=== PATIENT | female | born 1950 | race Caucasian/White ===

== ENCOUNTER 2020-11-26 07:30 | Inpatient (IN) | payer OTHER, BC, SELFPAY ==
[2020-11-22 12:07] LABS: BASOPHILS % (AUTO) 0.4 % (0.0-2.0); EOSINOPHILS # (AUTO) 0.2 K/uL (0.0-0.4); EOSINOPHILS % (AUTO) 2.7 % (0.0-4.0); HEMATOCRIT 40.4 % (36-48); HEMOGLOBIN 13.4 g/dL (12.0-16.0); LYMPHOCYTES # (AUTO) 1.9 K/uL (1.0-5.5); LYMPHOCYTES % (AUTO) 29.9 % (20.5-51.5); MEAN CORPUSCULAR HEMOGLOBIN 29 pg (27-31); MEAN CORPUSCULAR HGB CONC 33 % (32-36); MEAN CORPUSCULAR VOLUME 88 fL (79.0-98.0); MONOCYTES # (AUTO) 0.4 K/uL (0.0-1.0); MONOCYTES % (AUTO) 6.7 % (1.7-9.3); NEUTROPHILS # (AUTO) 3.9 K/uL (1.8-7.7); NEUTROPHILS % (AUTO) 60.3 % (40.0-70.0); PLATELET COUNT (AUTO) 223 K/uL (130-430); RED BLOOD CELL COUNT(AUTO) 4.59 MIL/uL (4.2-6.2); RED CELL DISTRIBUTION WIDTH 13.9 % (9.0-15.0); WHITE BLOOD COUNT (AUTO) 6.5 K/uL (4.8-10.8)
[2020-11-22 12:19] LABS: INR 0.9 (0.8-1.2); PROTHROMBIN TIME 9.4 SECS (9.5-12.5)
[2020-11-22 12:23] LABS: ANION GAP 9 (5-15); CALCIUM 8.8 mg/dL (8.4-11.0); CHLORIDE 105 mmol/L (98-107); CREATININE 0.95 mg/dL (0.55-1.30); GLUCOSE 113 mg/dL (70-99); POTASSIUM 4.4 mmol/L (3.5-5.1); SODIUM SERUM 143 mmol/L (136-145); UREA NITROGEN, BLOOD 20 mg/dL (8-21)
[2020-11-22 12:49] LABS: BILIRUBIN,URINE NEGATIVE (NEGATIVE); BLOOD, URINE NEGATIVE (NEGATIVE); CLARITY/URINE CLEAR (CLEAR); COLOR,URINE YELLOW (YELLOW); GLUCOSE,URINE NEGATIVE (NEGATIVE); KETONES,URINE NEGATIVE (NEGATIVE); LEUKOCYTE ESTERASE ,URINE NEGATIVE (NEGATIVE); NITRITE, URINE NEGATIVE (NEGATIVE); PROTEIN URINE NEGATIVE (NEGATIVE); UROBILINOGEN,URINE 0.2 (0.2-1.0)
[~2020-11-26] VITALS: Ht 170.2 cm; Wt 104.3 kg
[2020-11-26] MEDS: RIVAROXABAN 10 MG TABLET PO SCH (09:00)
[2020-11-26] MEDS ORDERED: CEFAZOLIN SOD 1 GM in D5W 50 ML IV ONE (09:00)
[2020-11-26] MEDS ORDERED: DOXA1TAB2 PO (09:35)
[2020-11-26] MEDS ORDERED: DICL50TA9 PO (09:35)
[2020-11-26] MEDS ORDERED: LOSA100T3 PO (09:35)
[2020-11-26] MEDS ORDERED: POLYMYXIN 500,000/BACIT.10,000 UNITS in NS IRR 1 L IR ONE ×3 (10:00→12:35)
[2020-11-26] MEDS ORDERED: BUPIVACAINE /DEX PF 0.75% SPINAL 2 ML AMP INJ ONE (10:21)
[2020-11-26] MEDS ORDERED: MORPHINE SULFATE 10MG/10ML PF AMP EP ONE (10:21)
[2020-11-26] MEDS ORDERED: PROPOFOL 200MG/ 20ML VIAL (DIPRIVAN) IV ONE (10:21)
[2020-11-26] MEDS ORDERED: BUPIVACAINE LIPOSOME/PF 266 MG/20 ML VIAL INFIL ONE ×2 (10:21→11:57)
[2020-11-26] MEDS ORDERED: KETOROLAC TROMETHAMINE 30 MG VIAL IVP ONE (10:21)
[2020-11-26] MEDS ORDERED: ONDANSETRON HCL 4 MG/2 ML VIAL IVP ONE (10:21)
[2020-11-26] MEDS ORDERED: BUPIVACAINE /EPINEPHRINE/PF 0.5% 30 ML VIAL INJ ONE (10:21)
[2020-11-26] MEDS ORDERED: LR 1,000 ML IV.SOLN IV ONE (10:21)
[2020-11-26] MEDS ORDERED: NS 1000 ML IV.SOLN IV ONE (10:21)
[2020-11-26] MEDS ORDERED: MIDAZOLAM HCL 5 MG/5 ML VIAL IVP ONE (10:21)
[2020-11-26] MEDS ORDERED: DEXAMETHASONE SOD PHOSPHATE 4 MG/ML VIAL IVP ONE (10:21)
[2020-11-26] MEDS ORDERED: BISACODYL 10 MG/SUPPOSITORY RC PRN (10:30)
[2020-11-26] MEDS ORDERED: D5/0.45 NS 1,000 ML IV ONE (10:30)
[2020-11-26] MEDS ORDERED: ACETAMINOPHEN 325 MG TABLET PO PRN (10:30)
[2020-11-26] MEDS ORDERED: HYDROcodone/ACETAMIN 7.5-325 MG TAB PO PRN (10:30)
[2020-11-26] MEDS ORDERED: NALOXONE HCL 0.4 MG/ML AMP (NARCAN) IVP PRN (11:45)
[2020-11-26] MEDS ORDERED: MIDAZOLAM HCL 2 MG/2 ML VIAL (VERSED) IVP PRN (11:45)
[2020-11-26] MEDS ORDERED: DIPHENHYDRAMINE INJ 50 MG/ML VIAL IVP PRN (11:45)
[2020-11-26] MEDS ORDERED: MEPERIDINE HCL/PF 25 MG/ML DISP.SYRIN IVP PRN (11:45)
[2020-11-26] MEDS ORDERED: HYDROmorphone 1 MG INJ. 1 MG/ML CARTRIDGE IVP PRN ×2 (11:45)
[2020-11-26] MEDS ORDERED: METOCLOPRAMIDE HCL 10 MG/2 ML VIAL IVP PRN (11:45)
[2020-11-26] MEDS ORDERED: ONDANSETRON HCL 4 MG/2 ML VIAL IVP PRN ×2 (11:45)
[2020-11-26] MEDS ORDERED: LR 1,000 ML IV SCH (11:45)
[2020-11-26 14:30] VITALS: BP_SYST 151
[2020-11-26 15:09] VITALS: BP_SYST 151
[2020-11-26 16:17] VITALS: BP_SYST 122
[2020-11-26] MEDS: MORPHINE SULFATE 10 MG/ML VIAL IM PRN (18:07)
[2020-11-26] MEDS: CEFAZOLIN 1 GM IVPB PREMIX 50 ML IV SCH (18:08)
[2020-11-26 20:00] VITALS: BP_SYST 121
[2020-11-26] MEDS ORDERED: ZOLPIDEM TARTRATE 5 MG TABLET PO PRN (22:15)
[2020-11-27] MEDS: CEFAZOLIN 1 GM IVPB PREMIX 50 ML IV SCH (00:21)
[2020-11-27 02:04] VITALS: BP_SYST 118
[2020-11-27 08:00] VITALS: BP_SYST 125
[2020-11-27] MEDS: RIVAROXABAN 10 MG TABLET PO SCH (08:16)
[2020-11-27] MEDS ORDERED: traMADol HCL HCL 50 MG TABLET (ULTRAM) PO PRN (09:30)
[2020-11-27] MEDS ORDERED: DOXAZOSIN MESYLATE 2 MG TABLET PO ONE (11:30)
[2020-11-27] MEDS ORDERED: LOSARTAN POTASSIUM 50 MG TABLET (COZAAR) PO ONE (11:30)
[2020-11-27 12:07] LABS: BASOPHILS % (AUTO) 0.1 % (0.0-2.0); EOSINOPHILS % (AUTO) 0.1 % (0.0-4.0); MEAN CORPUSCULAR HEMOGLOBIN 29 pg (27-31)
[2020-11-27 12:09] LABS: HEMATOCRIT 31.5 % (36-48); HEMOGLOBIN 10.5 g/dL (12.0-16.0); LYMPHOCYTES % (AUTO) 13.8 % (20.5-51.5); MEAN CORPUSCULAR HGB CONC 33 % (32-36); MEAN CORPUSCULAR VOLUME 88 fL (79.0-98.0); MONOCYTES # (AUTO) 1.4 K/uL (0.0-1.0); MONOCYTES % (AUTO) 9.8 % (1.7-9.3); NEUTROPHILS # (AUTO) 11.1 K/uL (1.8-7.7); NEUTROPHILS % (AUTO) 76.2 % (40.0-70.0); PLATELET COUNT (AUTO) 259 K/uL (130-430); RED BLOOD CELL COUNT(AUTO) 3.57 MIL/uL (4.2-6.2); RED CELL DISTRIBUTION WIDTH 13.8 % (9.0-15.0); WHITE BLOOD COUNT (AUTO) 14.6 K/uL (4.8-10.8)
[2020-11-27 12:16] VITALS: BP_SYST 150
[2020-11-27 12:23] LABS: ANION GAP 8 (5-15); CALCIUM 8.2 mg/dL (8.4-11.0); CHLORIDE 102 mmol/L (98-107); CREATININE 1.26 mg/dL (0.55-1.30); GLUCOSE 125 mg/dL (70-99); POTASSIUM 3.8 mmol/L (3.5-5.1); SODIUM SERUM 138 mmol/L (136-145); UREA NITROGEN, BLOOD 23 mg/dL (8-21)
[2020-11-27 12:29] LABS: ALANINE AMINOTRANSFERASE 52 U/L (12-78); ALBUMIN 3.1 g/dL (3.4-4.8); ASPARTATE AMINOTRANSFERASE 23 U/L (10-37); TOTAL BILIRUBIN 0.4 mg/dL (0.0-1.0)
[2020-11-27] MEDS: MORPHINE SULFATE 10 MG/ML VIAL IM PRN ×2 (12:34→20:42)
[2020-11-27] MEDS ORDERED: ONDANSETRON HCL 4 MG/2 ML VIAL IM PRN (14:30)
[2020-11-27 16:15] VITALS: BP_SYST 114
[2020-11-27 20:00] VITALS: BP_SYST 124
[2020-11-28 00:20] VITALS: BP_SYST 134
[2020-11-28] MEDS: MORPHINE SULFATE 10 MG/ML VIAL IM PRN ×5 (00:53→22:49)
[2020-11-28 08:00] VITALS: BP_SYST 107
[2020-11-28] MEDS: RIVAROXABAN 10 MG TABLET PO SCH (08:58)
[2020-11-28] MEDS: DOXAZOSIN MESYLATE 2 MG TABLET PO SCH (08:59)
[2020-11-28] MEDS: LOSARTAN POTASSIUM 50 MG TABLET (COZAAR) PO SCH (08:59)
[2020-11-28 12:29] VITALS: BP_SYST 107
[2020-11-28 16:15] VITALS: BP_SYST 122
[2020-11-28 20:00] VITALS: BP_SYST 118
[2020-11-29] VITALS: BP_SYST 142
[2020-11-29] MEDS: MORPHINE SULFATE 10 MG/ML VIAL IM PRN ×2 (06:37→15:03)
[2020-11-29 08:00] VITALS: BP_SYST 134
[2020-11-29] MEDS: LOSARTAN POTASSIUM 50 MG TABLET (COZAAR) PO SCH (09:41)
[2020-11-29] MEDS: DOXAZOSIN MESYLATE 2 MG TABLET PO SCH (09:42)
[2020-11-29] MEDS: RIVAROXABAN 10 MG TABLET PO SCH (09:43)
[2020-11-29 12:56] VITALS: BP_SYST 137
[2020-11-29 16:00] VITALS: BP_SYST 116
[2020-11-29 16:54] VITALS: BP_SYST 137
== END 2020-11-29 18:10 | DRG 470 ==
LOC: SMU 08:20
PROVIDERS: ADMIT Orthopaedic Surgery; ATTEND Orthopaedic Surgery
PROC: 0SRD0J9 Replacement of Left Knee Joint with Synthetic Substitute, Cemented, Open Approach (ICD-10-PCS; principal; 2020-11-26 10:30)
DX: M17.12 Unilateral primary osteoarthritis, left knee (principal); I10 Essential (primary) hypertension; E78.5 Hyperlipidemia, unspecified; Z20.822 Contact with and (suspected) exposure to COVID-19; Z90.710 Acquired absence of both cervix and uterus; Z88.6 Allergy status to analgesic agent; Z88.8 Allergy status to other drugs, medicaments and biological substances
CPT/HCPCS: 36415; 71046-TC; 80048; 80053; 81003; 85025; 85610-TC; 85730-TC; 87081; 88305; 88311; 97110-GP; 97112-GP; 97116-GP; 97163; 97530-GP; C1713; C1776; C9290; J0690; J1100; J1885; J2250; J2270; J2274; J2405; J2704; J3490; J7030; J7060; J7120; U0003